=== PATIENT | male | born 1975 | race Two or more races ===

== ENCOUNTER 2020-12-15 06:27 | Day surgery (SDC) | payer OTHER | END 2020-12-15 10:50 | disposition home or self-care (01) | LOC: AMB-ENDOS 06:27 | PROVIDERS: ATTEND Surgery | DX: K62.89 Other specified diseases of anus and rectum (principal); Z20.822 Contact with and (suspected) exposure to COVID-19 ==

== ENCOUNTER 2020-12-19 09:50 | Day surgery (SDC) | payer OTHER ==
[2020-12-19] MEDS ORDERED: PERCOCET 5-3251 EACH PO (14:57)
[2020-12-19] MEDS ORDERED: COLACE100 MG PO (14:57)
== END 2020-12-19 17:15 | disposition home or self-care (01) ==
LOC: CIR.AMB 09:50
PROVIDERS: ATTEND Surgery
DX: K60.3 Anal fistula (principal); Z20.822 Contact with and (suspected) exposure to COVID-19